=== PATIENT | male | born 1955 | race Caucasian/White ===

== ENCOUNTER 2019-10-21 18:41 | Emergency (ER) | payer OTHER ==
[~2019-10-21] VITALS: Ht 177.8 cm; Wt 158.8 kg
[~2019-10-21 18:41] MED LIST: LOMOTIL 0.025 M1 TA1 PO; ZOFRAN ODT4 MG SL
[2019-10-21] MEDS ORDERED: CYCLOBENZAPRINE5 M3 PO (21:48)
== END 2019-10-21 21:45 | disposition home or self-care (01) ==
LOC: ED 18:41
DX: S16.1XXA Strain of muscle, fascia and tendon at neck level, initial encounter (principal); S09.90XA Unspecified injury of head, initial encounter; I10 Essential (primary) hypertension; M19.90 Unspecified osteoarthritis, unspecified site; Z79.899 Other long term (current) drug therapy; W19.XXXA Unspecified fall, initial encounter; Y93.89 Activity, other specified; Y92.89 Other specified places as the place of occurrence of the external cause; Y99.8 Other external cause status

== ENCOUNTER → 2022-06-10 | Outpatient (CLI) | payer MEDICARE, OTHER ==
[~2022-06-10] MED LIST changes: +CYCLOBENZAPRINE5 M3 PO
== END | disposition home or self-care (01) ==
LOC: LAB 00:21
PROVIDERS: ATTEND Internal Medicine Endocrinology, Diabetes & Metabolism
DX: D35.2 Benign neoplasm of pituitary gland (principal)

== ENCOUNTER → 2023-02-14 | Outpatient (CLI) | payer MEDICARE, OTHER | END | disposition home or self-care (01) | LOC: RESCLI 02:53 | PROVIDERS: ATTEND Internal Medicine | DX: I48.91 Unspecified atrial fibrillation (principal); I11.0 Hypertensive heart disease with heart failure; I50.9 Heart failure, unspecified; E78.5 Hyperlipidemia, unspecified; G47.33 Obstructive sleep apnea (adult) (pediatric); N31.9 Neuromuscular dysfunction of bladder, unspecified; Z98.890 Other specified postprocedural states; Z82.8 Family history of other disabilities and chronic diseases leading to disablement, not elsewhere classified ==

== ENCOUNTER → 2023-11-16 | Outpatient (CLI) | payer MEDICARE, OTHER ==
[2023-11-16 09:13] LABS: FREE T4 1.07 ng/dl (0.89-1.76)
== END | disposition home or self-care (01) ==
LOC: LAB 08:26
PROVIDERS: ATTEND Clinical Nurse Specialist
DX: D35.2 Benign neoplasm of pituitary gland (principal)

== ENCOUNTER → 2023-11-21 | Outpatient (CLI) | payer MEDICARE, OTHER | END | disposition home or self-care (01) | LOC: LAB 08:18 | PROVIDERS: ATTEND Clinical Nurse Specialist | DX: D35.2 Benign neoplasm of pituitary gland (principal) ==